=== PATIENT | male | born 1995 | race Caucasian/White ===

== ENCOUNTER 2017-09-11 20:55 | Emergency (ER) | payer OTHER ==
[2017-09-11] MEDS: HYDROCODONE/APAP (5/325) TAB PO (23:48)
[2017-09-12] MEDS: SOD CHLORIDE 0.9% 1,000 ML IV (01:53)
[2017-09-12 02:25] LABS: PARTIAL THROMBOPLASTIN TIME 31.1 Sec (25.0-35.0); PROTIME 15.4 Sec (11.9-14.9); PT RATIO 1.2
== END 2017-09-12 08:53 | disposition home or self-care (01) ==
LOC: FTE 09-12 08:53
DX: S52.032A Displaced fracture of olecranon process with intraarticular extension of left ulna, initial encounter for closed fracture (principal); W01.0XXA Fall on same level from slipping, tripping and stumbling without subsequent striking against object, initial encounter; Y92.9 Unspecified place or not applicable
CPT/HCPCS: 29125; 36415; 73060; 73080-LT; 73090; 85610; 85730; 99284-25